=== PATIENT | female | born 1985 ===

== ENCOUNTER 2017-05-11 09:50 | Inpatient (IN) ==
--- OUTSIDE RECORDS SUMMARY | 2017-05-11 10:26 | External Medical Summary | Continuity of Care Document ---
:1985 Author Organization [facility] [employer] [facility] Address [address] [place], [place] [address] Phone Care Team Providers Name Role Phone Lawrence Colvin MD Unavailable Unavailable Allergies, Adverse Reactions, Alerts Substance Reaction Severity Status No Known Drug Allergies Unknown Active Medications Medication Instructions Dosage Effective Dates Status Comments (start - stop) Miralax 17 gram/dose take (17G) by oral 17 G - Active oral powder route every day mixed with 8 oz. water, juice, soda, coffee or tea Problems Condition Effective Dates (start - stop) Clinical Status Supervision of other high risk - pregnancies, third trimester Twin , - dichorionic/diamniotic, third trimester Maternal care for oth - abnormality and damage, fetus 2 33 weeks gestation of - Gestational htn w/o significant - proteinuria, third trimester Twin , - dichorionic/diamniotic, third trimester Previous Low Transverse - 34 weeks gestation of - Supervision of other high risk - pregnancies, third trimester Twin , - dichorionic/diamniotic, third trimester Previous Low Transverse - 34 weeks gestation of - Supervision of other high risk - pregnancies, third trimester Twin , - dichorionic/diamniotic, third trimester Previous Low Transverse - 32 weeks gestation of - Supervision of other high risk - pregnancies, third trimester Twin , - dichorionic/diamniotic, third trimester Previous Low Transverse - 31 weeks gestation of - Supervision of other high risk - pregnancies, third trimester Twin , - dichorionic/diamniotic, third trimester Previous Low Transverse - Maternal care for oth - abnormality and damage, fetus 2 Supervision of other high risk - pregnancies, third trimester Twin , - dichorionic/diamniotic, third trimester Maternal care for oth - abnormality and damage, fetus 2 35 weeks gestation of - Supervision of other high risk - pregnancies, third trimester Abnormal hematolog finding on - screening of mother Twin , - dichorionic/diamniotic, third trimester Previous Low Transverse - Supervision of other high risk - pregnancies, third trimester Twin , - dichorionic/diamniotic, third trimester Previous Low Transverse - 29 weeks gestation of - Gestational htn w/o significant - proteinuria, third trimester Twin , - dichorionic/diamniotic, third trimester Previous Low Transverse - Encounter for sterilization - Twin , - dichorionic/diamniotic, third trimester Previous Low Transverse - 32 weeks gestation of - Twin , - dichorionic/diamniotic, third trimester Previous Low Transverse - 33 weeks gestation of - Procedures Procedure Date biophys prfl w/o nstress test biophys prfl w/o nstress test Results Test Name Date and Time Measure Units Reference Range Abnormal Flag Comments Unknown Advance Directives Directive Yes / No Effective Date File Name Unknown Encounters Encounter Practice Location Reason(s) Diagnoses Date Provider Care Team Description For Visit Members Kyree Gtz Gestational htn Apr- Alexandra Referring In Womens w/o significant 6-201 Zita. Provider: Health [place], proteinuria, 7 700 Zita [address] third Medical Alexandra L, 1522, trimesterTwin Center [address] [place] [address], , , Kilo LOZANO, dichorionic/diamn 120, Center [id number], iotic, third [place], Kilo 120, [place] trimesterPrevious Ulisses LOZANO, tel:[phone] Low Transverse [id number] [place], [place] , [place]. [id number]. r for tel: tel:+316 sterilization [phone] Kyree Gtz Supervision of Alexandra Referring In Womens Ultrasound other high risk 6-201 Zita. Provider: Health [place], pregnancies, 7 700 Zita [address] third Medical Alexandra L, 1522, trimesterTwin Center [address] [place] [address], , , Kilo LOZANO, dichorionic/diamn 120, Center , iotic, third Uliss[place], Kilo 120, [place] trimesterMaternal Ulisses LOZANO, tel:+2 care for oth [phone] [place], abnormality , [place]. [id number]. and damage, fetus tel: tel:+316 235 weeks [phone] gestation of Kyree Gtz Gestational htn Apr-0 Alexandra In Womens w/o significant 9-201 Zita. Health [place], proteinuria, 7 700 PO Box third Medical 1522, [facility], , Kilo Thomas, dichorionic/diamn 120, [id number], iotic, third Gtz, [place] trimesterPrevious [place], tel:+[phone] Low Transverse [id number] C-Fjbhnwb83 weeks , [place]. gestation of tel: [phone] Kyree Gtz Supervision of Alexandra In Womens Ultrasound other high risk 9-201 Zita. Health [place], pregnancies, 7 700 PO Box third Medical 1522, [facility], , Kilo Thomas, dichorionic/diamn 120, [id number], iotic, third Gtz, [place] trimesterPrevious [place], tel:+ Low Transverse [phone] C-Ommlwti64 weeks , [place]. gestation of tel: [phone] Associates [place] Supervision of Alexandra In Womens other high risk 2-201 Zita. Health [place], pregnancies, 7 700 PO Box third Medical 1522, [facility], , Kilo Thomas, dichorionic/diamn 120, [id number], iotic, third Gtz, [place] trimesterPrevious [place], tel: Low Transverse [phone] [id number] C-SectionMaternal , [place]. care for oth tel: abnormality [phone] and damage, fetus 2 Associates [place] Supervision of Alexandra In Womens Ultrasound other high risk 2-201 Zita. Health [place], pregnancies, 7 700 PO Box third Medical 1522, [facility], , Kilo Thomas, dichorionic/diamn 120, [id number], iotic, third Gtz, [place] trimesterMaternal [place], tel: care for oth [phone] abnormality , [place]. and damage, fetus tel: 233 weeks [phone] gestation of Associates [place] Supervision of Alexandra In Womens other high risk 6-201 Zita. Health [place], pregnancies, 7 700 PO Box third Medical 1522, [facility], , Kilo Thomas, dichorionic/diamn 120, [id number], iotic, third Gtz, [place] trimesterPrevious [place], tel: Low Transverse [phone] [id number] C-Rkkbxpg02 weeks , [place]. gestation of tel: [phone] Kyree Gtz Twin , Mar- Alexandra In Womens Ultrasound dichorionic/diamn 6-201 Zita. Health [place], iotic, third 7 700 PO Box trimesterPrevious Medical 1522, Low Transverse [facility], C-Rtapqnw16 weeks Kilo Thomas, gestation of 120, [id number], Gtz, [place], tel: [phone] , [place]. tel: [phone] Kyree Gtz Supervision of Alexandra In Womens other high risk 9-201 Zita. Health [place], pregnancies, 7 700 PO Box third Medical 1522, trimesterAbnormal [facility] [place], hematolog finding Kilo Thomas, on 120, , screening of Ulisses motherKhai LOZANO, tel: , dichorionic/diamn , [place]. iotic, third tel: trimesterPrevious [id number] Low Transverse Associates [place] Twin , Mar-1 Alexandra In Womens Ultrasound dichorionic/diamn 9-201 Zita. Health [place], iotic, third 7 700 PO Box trimesterPrevious Medical 1522, Low Transverse [facility] [place], C-Hkocgaa09 weeks Kilo Thomas, gestation of 120, , [place], tel:901 , [place]. tel:[phone] Kyree Gtz Supervision of Mar- Alexandra In Womens other high risk 2-201 Zita. Health [place], pregnancies, 7 700 PO Box third Medical 1522, [facility], , Kilo Thomas, dichorionic/diamn 120, , iotic, [facility] trimesterPrevious [place], tel: Low Transverse [phone] C-Bzrrini60 weeks , [place]. gestation of tel: [phone] Associates [place] Supervision of Maximo-2 Alexandra In Womens other high risk 9-201 Zita. Health [place], pregnancies, 7 700 PO Box third Medical 1522, [facility], , Kilo Thomas, dichorionic/diamn 120, [id number], iotic, third [facility] trimesterPrevious [place], tel: Low Transverse [phone] C-Aukymlj43 weeks , [place]. gestation of tel: [phone] Family History Family Member Diagnosis Age At Onset Sister Thyroid Disorder Maternal Grandfather Hypertension Immunizations Vaccine Date Status Comments Tdap completed Source: New Immunization Record Payers Payer name Insurance type Covered democrat ID Authorization(s) [employer] - Medicaid [place] [id number] [employer] - Medicaid [place] [id number] Social History Type Description Quantity Date Captured Unknown Vital Signs Date / Height Weight BMI Pulse Blood Temperature Respiratory Body Head BMI Time: Rate Pressure Rate Surface Circumference percentile Area Unknown Chief Complaint And Reason For Visit Unknown Chief Complaint And Reason For Visit Reason For Referral Reason For Referral Unknown Plan Of Care Date Type Action Status Appointment Dipti Boggs KEPT Appointment Dipti Boggs BOOKED Appointment Dipti Boggs [facility] R C/S And PPTL BOOKED Appointment Dipti Boggs BOOKED Appointment Dipti Boggs BOOKED Appointment Dipti Boggs BOOKED Appointment Dipti Boggs BOOKED Future Order: Radiology Order Biophysical Profile without NST Ordered ([id number]) Future Order: Radiology Order Ultrasound OB Follow-up ([id number]) Ordered Future Order: Radiology Order Biophysical Profile without NST Ordered ([id number]) Future Order: Radiology Order Biophysical Profile without NST Ordered ([id number]) Future Order: Radiology Order Ultrasound OB Follow-up ([id number]) Ordered Future Order: Radiology Order Biophysical Profile without NST Ordered ([id number]) Date Type Problem Goal Intervention Status Start Date Unknown. History Of Present Illness Encounter Date Complaint History Of Present Illness This patient has no known history of present illness Functional Status Encounter Date Functional Assessment Cognitive Assessment Unknown Medications Administered Medication Instructions Dosage Effective Dates (start - stop) Status Comments Drug Treatment Unknown Instructions Date Instruction Additional Information Unknown
--- OUTSIDE RECORDS SUMMARY | 2017-05-11 10:27 | External Medical Summary | Continuity of Care Document ---
:1986 Author Organization [facility] [employer] [facility] Address [address] [place], [place] [id number] Phone Care Team Providers Name Role Phone Lawrence Colvin MD Unavailable Unavailable Allergies, Adverse Reactions, Alerts Substance Reaction Severity Status No Known Drug Allergies Unknown Active Medications Medication Instructions Dosage Effective Dates Status Comments (start - stop) iron ER 325 mg (65 take 1 tablet by Not Available - Active mg iron) oral route 2 times capsule,extended every day release Stool Softener 50 take 1 capsule by 50 MG - Active mg capsule oral route every day at bedtime as needed ORAL - Active TABLET Problems Condition Effective Dates (start - stop) Clinical Status Supervision of other high risk - pregnancies, third trimester Twin , - dichorionic/diamniotic, third trimester Previous Low Transverse - 29 weeks gestation of - Supervision of other high risk - pregnancies, third trimester Twin , - dichorionic/diamniotic, third trimester Previous Low Transverse - 31 weeks gestation of - Supervision of other high risk - pregnancies, third trimester Abnormal hematolog finding on - screening of mother Twin , - dichorionic/diamniotic, third trimester Previous Low Transverse - Previous Low Transverse - Twin , - dichorionic/diamniotic, third trimester 32 weeks gestation of - Procedures Procedure Date Initial OB 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 Results Test Name Date and Time Measure Units Reference Range Abnormal Flag Comments Panel Description: Glucose [Mass/volume] in Serum or Plasma --1 hour post 50 g glucose PO GLUCOSE, 145 mg/dL <140 H One hour value of > GESTATIONAL SCREEN 14:52:00 hd=517 mg/dL indicatesthe (50G)-140 CUTOFF need for a diagnostic 75 g dose 2-hour or100 g dose 3-hour oral glucose tolerance test;patient fasting is required.Test performed at [facility] [address] [id number]: BOWEN MENDOZA DO,MPH Panel Description: HEMOGLOBIN + HEMATOCRIT HEMOGLOBIN 14:52:00 10.7 g/dL 11.7-15.5 L HEMATOCRIT 14:52:00 32.4 % 35.0-45.0 L REPORT COMMENT:FASTING :NOTest performed at [facility] [address] [id number]: BOWEN MENDOZA DO,MPH Advance Directives Directive Yes / No Effective Date File Name Unknown Encounters Encounter Practice Location Reason(s) Diagnoses Date Provider Care Description For Visit Team Members Kyree Gtz Supervision of Mar- Alexandra In Womens other high risk 9-201 Zita. Health STACIE, pregnancies, third 7 700 [address] trimesterAbnormal Medical 1522, hematolog finding Center [facility] Kilo Thomas, screening of 120, , motherTwin [facility] [place], tel:+ dichorionic/diamni [phone] [facility], [facility] , [place]. trimesterPrevious tel: Low Transverse [phone] Kyree Gtz Previous Low Mar-1 Alexandra In Womens Ultrasound Transverse 9-201 Zita. Health STACIE, C-SectionTwin 7 700 PO Box , Medical 1522, dichorionic/diamni [facility] Kilo Thomas, [id number] weeks 120, [id number], gestation of [facility] [place], tel:[phone] , . tel: [phone] Kyree Gtz Supervision of Mar-1 Alexandra In Womens other high risk 2-201 Zita. Health STACIE, pregnancies, third 7 700 PO Box trimesterTwin Medical 1522, , [facility] [place], amyonic/dhiraj Thomas, [place], otic, third 120, [id number], trimesterPrevious Gtz, [place] Low Transverse [place], tel:+3162 C-Xxlztco51 weeks [phone] [id number] gestation of , [place]. tel: [phone] Kyree Gtz Supervision of Alexandra In Womens other high risk Zita. Health [place], pregnancies, third 7 700 PO Box trimesterTwin Medical 1522, , [facility] [place], dichricharonic/dhiraj Thomas, Kilo LOZANO, otic, third 120, [id number], trimesterPrevious Gtz, [place] Low Transverse [place], tel:+3162 C-Zgfmdsy54 weeks [phone] [id number] gestation of , [place]. tel: [phone] Family History Family Member Diagnosis Age At Onset Sister Thyroid Disorder Maternal Grandfather Hypertension Immunizations Vaccine Date Status Comments Unknown Payers Payer name Insurance type Covered democrat ID Authorization(s) [employer] - Medicaid MC [id number] Social History Type Description Quantity Date Captured Alcohol Use Details No Caffeine Use Details Unknown Tobacco Use Status Never smoked tobacco Smoking Status Former smoker Non-Smoking Tobacco Use : No Details Available : No Details Available Details Vital Signs Date / Height Weight BMI Pulse Blood Temperature Respiratory Body Head BMI Time: Rate Pressure Rate Surface Circumference percentile Area 40.8 129/76 -2017 7 mm[Hg] 1:48 kg/m PM eter (2) 182.00 40.8 -2017 lbs 0 1:49 kg/m PM eter (2) 40.8 -2017 7 1:40 kg/m PM eter (2) 182.30 40.8 147/81 -2017 lbs 7 mm[Hg] 1:25 kg/m PM eter (2) 182.30 40.8 128/79 -2017 lbs 0 mm[Hg] 1:52 kg/m PM eter (2) Chief Complaint And Reason For Visit Unknown Chief Complaint And Reason For Visit Reason For Referral Reason For Referral Unknown Plan Of Care Date Type Action Status Appointment Dipti Boggs BOOKED Appointment Dipti Boggs BOOKED Appointment Dipti Boggs BOOKED Appointment Dipti Boggs BOOKED Appointment Dipti Boggs BOOKED Appointment Dipti Boggs BOOKED Appointment Dipti Boggs BOOKED Appointment Dipti Boggs BOOKED Appointment Dipti Boggs BOOKED Appointment Dipti Boggs BOOKED Appointment Dipti Boggs BOOKED Appointment Dipti Boggs BOOKED Appointment Dipti Boggs BOOKED Appointment Dipti Boggs BOOKED Future Order: Radiology Order Ultrasound OB Follow-up ([id number]) Ordered Date Type Problem Goal Intervention Status Start [...]
--- OUTSIDE RECORDS SUMMARY | 2017-05-11 10:27 | External Medical Summary | Continuity of Care Document ---
:1986 Author Organization [facility] Address [address] [place], [place] [address] Phone Care Team Providers Name Role Phone [...] oth - abnormality and damage, fetus 2 Gestational htn w/o significant - proteinuria, third [...] fetus 2 33 weeks gestation of - Supervision of other [...] weeks gestation of - Procedures Procedure Date OB Visit No Charge Results Test Name Date and Time Measure Units Reference Range Abnormal Flag Comments Unknown Advance Directives Directive Yes / No Effective Date File Name Unknown Encounters Encounter Practice Location Reason(s) Diagnoses Date Provider Care Team Description For Visit Members Kyree Gtz Gestational htn Alexandra Referring In Womens w/o significant Zita. Provider: Health [place], proteinuria, 7 700 Zita [address] third Medical Alexandra L, 1522, trimesterTwin Center [address] [place] [address], , , Kilo LOZANO, dichorionic/diamn 120, Center [id number], iotic, third Gtz, Kilo 120, [place] trimesterPrevious [place]iss[place] LOZANO, tel:+ Low Transverse [phone] [place], C-Section[place]ounte , [place]. [id number]. r for tel: tel:+316 sterilization [phone] Kyree Gtz Supervision of Alexandra Referring In Womens Ultrasound other high risk 6-201 Zita. Provider: Health [place], pregnancies, 7 700 Zita [address] third Medical Alexandra L, 1522, [address], , , Kilo LOZANO, dichorionic/diamn 120, Center [id number], iotic, third Gtz, Kilo 120, [place] trimesterMaternal Ulisses LOZANO, tel: care for oth [phone] [place], abnormality , [place]. [id number]. and damage, fetus tel: tel:+316 235 weeks [phone] gestation of Kyree Gtz Gestational htn Apr- Alexandra In Womens w/o significant - Zita. Health [place], proteinuria, 7 700 PO Box third Medical 1522, [facility], , Kilo Thomas, dichorionic/diamn 120, [id number], iotic, third Gtz, [place] trimesterPrevious [place], tel:+ Low Transverse [phone] C-Zrduguj13 weeks , [place]. gestation of tel: [phone] Kyree Gtz Supervision of Alexandra In Womens Ultrasound other high risk - Zita. Health [place], pregnancies, 7 700 PO Box third Medical 1522, [facility], , Kilo Thomas, dichorionic/diamn 120, [id number], iotic, third Gtz, [place] trimesterPrevious [place], tel:+ Low Transverse [phone] C-Tbjwrrd00 weeks , [place]. gestation of tel: [phone] Kyree Gtz Supervision of Apr-0 Alexandra In Womens other high risk 2-201 Zita. Health [place], pregnancies, 7 700 PO Box third Medical 1522, [facility], , Kilo Thomas, dichorionic/diamn 120, [id number], iotic, third Gtz, [place] trimesterPrevious [place], tel: Low Transverse [phone] C-SectionMaternal , [place]. care for oth tel: abnormality [phone] and damage, fetus 2 Associates [place] Supervision of Apr- Alexandra In Womens Ultrasound other high risk 2-201 Zita. Health [place], pregnancies, 7 700 PO Box third Medical 1522, [facility], , Kilo Thomas, dichorionic/diamn 120, [id number], iotic, third Gtz, trimesterMaternal [place], tel: care for oth [phone] abnormality , [place]. and damage, fetus tel: 233 weeks [phone] gestation of Kyree Gtz Supervision of Alexandra In Womens other high risk 6-201 Zita. Health PA, pregnancies, 7 700 PO Box third Medical 1522, [facility], , Kilo Thomas, dichorionic/diamn 120, [id number], iotic, third Gtz, [place] trimesterPrevious [place], tel: Low Transverse [phone] [id number] C-Ynglxfa12 weeks , [place]. gestation of tel: [phone] Kyree Gtz Twin , Mar- Alexandra In Womens Ultrasound dichorionic/diamn 6-201 Zita. Health PA, iotic, third 7 700 PO Box trimesterPrevious Medical 1522, Low Transverse [facility] [place], C-Mjhxwsw10 weeks Kilo Thomas, gestation of 120, , Gtz, [place], tel: [phone] , [place]. tel:[phone] Kyree Gtz Supervision of Alexandra In Womens other high risk 9-201 Zita. Health [place], pregnancies, 7 700 PO Box third Medical 1522, trimesterAbnormal [facility], hematolog finding Kilo Thomas, on 120, , screening of Ulisses motherKhai LOZANO, tel: , dichorionic/diamn , [place]. iotic, third tel: trimesterPrevious [id number] Low Transverse [facility] [place] Twin , Mar- Alexandra In Womens Ultrasound dichorionic/diamn 9-201 Zita. Health [place], iotic, third 7 700 PO Box trimesterPrevious Medical 1522, Low Transverse [facility] [place], C-Nlxbodr09 weeks Kiol Thomas, gestation of 120, , [place], tel: [phone] 1967[address] , [place]. tel: [phone] Kyree Gtz Supervision of Mar- Alexandra In Womens other high risk 2-201 Zita. Health [place], pregnancies, 7 700 PO Box third Medical 1522, [facility], , Kilo Thomas, dichorionic/diamn 120, [id number], iotic, [facility] trimesterPrevious [place], tel: Low Transverse [phone] [id number] C-Nuacxcv26 weeks , [place]. gestation of tel: [phone] Kyree Gtz Supervision of Maximo-2 Alexandra In Womens other high risk 9-201 Zita. Health [place], pregnancies, 7 700 PO Box third Medical 1522, [facility], , Kilo Thomas, dichorionic/diamn 120, , iotic, [facility] trimesterPrevious [place], tel: Low Transverse [phone] [id number] C-Otfczsr02 weeks , [place]. gestation of tel: [phone] Family History Family Member Diagnosis Age At Onset Sister Thyroid Disorder Maternal Grandfather Hypertension Immunizations Vaccine Date Status Comments Tdap completed Source: New Immunization Record Payers Payer name Insurance type Covered libertarian ID Authorization(s) [employer] - Medicaid [place] [id number] [employer] - Medicaid MC [id number] Social History Type Description Quantity Date Captured Alcohol Use Details No Caffeine Use Details Unknown Tobacco Use Status Smoking Status Former smoker Vital Signs Date / Height Weight BMI Pulse Blood Temperature Respiratory Body Head BMI Time: Rate Pressure Rate Surface Circumference percentile Area Unknown Chief Complaint And Reason For Visit Unknown Chief Complaint And Reason For Visit Reason For Referral Reason For Referral Unknown Plan Of Care Date Type Action Status Appointment Dipti Boggs [facility] R C/S And PPTL BOOKED Appointment Dipti Boggs BOOKED Appointment Dipti Boggs BOOKED Appointment Dipti Boggs BOOKED Appointment Dipti Boggs BOOKED Future Order: Radiology Order Ultrasound OB Follow-up ([id number]) Ordered Future Order: Radiology Order Biophysical Profile without NST Ordered ([id number]) Future Order: Radiology Order Biophysical Profile without NST Ordered ([id number]) Future Order: Radiology Order Biophysical Profile without NST Ordered ([id number]) Future Order: Radiology Order Ultrasound OB Follow-up ([id number]) Ordered Future Order: Radiology Order Biophysical Profile without NST Ordered ([id number]) Date Type Problem Goal Intervention Status Start [...]
--- OUTSIDE RECORDS SUMMARY | 2017-05-11 10:27 | External Medical Summary | Continuity of Care Document ---
:1985 Author Organization [facility] Allergies Active Description Code Type Severity Reaction Onset Reported/ Identified Relationship Clinical to Patient Status Yes No Known 13141 3 N/A N/A Drug 0 Allergies Medications Medication Packaging Start Date Stop Date Route Dosage Sig Tablet 04/27/2017 04/27/2017 VITAMINS take 1 tablet by oral route every day Gram 04/27/2017 MIRALAX take (17G) by oral route every day mixed with 8 oz. water, juice, soda, coffee or tea Tablet 04/27/2017 04/27/2017 FERROUS GLUCONATE take 1 tablet by oral route every day Problems Date Dx Attending Type Code Diagnosis Diagnosed By Coded 04/06/2017 Zita Morris O30.043 Twin , L dichorionic/diamniot ic, third trimester 04/06/2017 Zita Morris O34.211 Previous Low L Transverse 04/06/2017 Zita Morris Z3A.32 32 weeks gestation L of 04/13/2017 Zita Morris O30.043 Twin , L dichorionic/diamniot ic, third trimester 04/13/2017 Zita Morris O34.211 Previous Low L Transverse 04/13/2017 Zita Morris Z3A.33 33 weeks gestation L of 04/20/2017 Zita Morris O09.893 Supervision of other L high risk pregnancies, third trimester 04/20/2017 Zita Morris O30.043 Twin , L dichorionic/diamniot ic, third trimester 04/20/2017 Zita Morris O35.8xx2 Maternal care for L oth abnormality and damage, fetus 2 04/20/2017 Zita Morris Z3A.33 33 weeks gestation L of 04/27/2017 Zita Morris O09.893 Supervision of other L high risk pregnancies, third trimester 04/27/2017 Zita Morris O30.043 Twin , L dichorionic/diamniot ic, third trimester 04/27/2017 Zita Morris O34.211 Previous Low L Transverse 04/27/2017 Zita Morris Z3A.34 34 weeks gestation L of 05/04/2017 Zita Morris O09.893 Supervision of other L high risk pregnancies, third trimester 05/04/2017 Zita Morris O30.043 Twin , L dichorionic/diamniot ic, third trimester 05/04/2017 Zita Morris O35.8xx2 Maternal care for L oth abnormality and damage, fetus 2 05/04/2017 Zita Morris Z3A.35 35 weeks gestation L of 05/04/2017 Zita Morris O13.3 Gestational htn w/o L significant proteinuria, third trimester 05/04/2017 Ztia Morris O30.043 Twin , L dichorionic/diamniot ic, third trimester 05/04/2017 Zita Morris O34.211 Previous Low L Transverse 05/04/2017 Zita Morris Z30.2 Encounter for L sterilization 05/06/2017 Zita Morris O09.893 Supervision of other L high risk pregnancies, third trimester 05/06/2017 Zita Morris O30.043 Twin , L dichorionic/diamniot ic, third trimester 05/06/2017 Zita Morris O35.8xx2 Maternal care for L oth abnormality and damage, fetus 2 05/06/2017 Zita Morris Z3A.35 35 weeks gestation L of Procedures Code Description Performed By Performed On 04/06/2017 83831 Ultrasnd preg uterus, flwup/repeat 04/13/2017 37916 biophys prfl w/o nstress test 04/20/2017 35145 biophys prfl w/o nstress test 04/27/2017 01531 Ultrasnd preg uterus, flwup/repeat 04/27/2017 97274 biophys prfl w/o nstress test 05/04/2017 50973 biophys prfl w/o nstress test OB 05/04/2017 32890 Visit No Charge Results Encounters ACCT No. Visit Discharge Status Pt. Type Provider Facility Loc./Unit Complaint Date/Time [id number] 05/04/2017 05/04/2017 CLS Outpatient Alexandra, 10:00:00 23:59:59 Zita L [id number] 05/04/2017 05/04/2017 CLS Outpatient Alexandra, 08:45:00 23:59:59 Zita L [id number] 04/27/2017 04/27/2017 CLS Outpatient Alexandra, 10:00:00 23:59:59 Zita L [id number] 04/27/2017 04/27/2017 CLS Outpatient Alexandra, 09:15:00 23:59:59 Zita L [id number] 04/20/2017 04/20/2017 CLS Outpatient Alexandra, 09:05:00 23:59:59 Zita L [id number] 04/20/2017 04/20/2017 CLS Outpatient Alexandra, 08:45:00 23:59:59 Zita L [id number] 04/13/2017 04/13/2017 CLS Outpatient Alexandra, 09:30:00 23:59:59 Zita L [id number] 04/13/2017 04/13/2017 CLS Outpatient Alexandra, 08:45:00 23:59:59 Zita L [id number] 04/06/2017 04/06/2017 CLS Outpatient Alexandra, 10:00:00 23:59:59 Zita L [id number] 04/06/2017 04/06/2017 CLS Outpatient Alexandra, 09:15:00 23:59:59 Zita L [id number] 03/31/2017 03/31/2017 CLS Outpatient Alexandra, 09:09:00 23:59:59 Zita L [id number] 03/30/2017 03/30/2017 CLS Outpatient Alexandra, 08:50:00 23:59:59 Zita L [id number] 03/18/2017 03/18/2017 CLS Outpatient Alexandra, 09:12:00 23:59:59 Zita L [id number] 03/17/2017 03/17/2017 CLS Outpatient Alexandra, 13:15:00 23:59:59 Zita L [id number] 03/16/2017 03/16/2017 [facility], 13:08:00 23:59:59 Catalina Pelaez
--- OUTSIDE RECORDS SUMMARY | 2017-05-11 10:27 | External Medical Summary | Continuity of Care Document ---
:1985 Author Organization [facility] Address [address] [place], [place] [id number] Phone Care Team Providers Name Role Phone Lawrence Colvin MD Unavailable Unavailable Allergies, Adverse Reactions, Alerts Substance Reaction Severity Status No Known Drug Allergies Unknown Active Medications Medication Instructions Dosage Effective Dates Status Comments (start - stop) ferrous gluconate take 1 tablet by Not Available - Active 324 mg (36 mg oral route every iron) tablet day Vitamin take 1 tablet by Not Available - Active tablet oral route every day Miralax 17 take (17G) by oral 17 G - Active gram/dose oral route every day powder mixed with 8 oz. water, juice, soda, coffee or tea iron ER 325 mg (65 take 1 tablet by Not Available - Active mg iron) oral route 2 times capsule,extended every day release Stool Softener 50 take 1 capsule by 50 MG - Active mg capsule oral route every day at bedtime as needed ORAL - Active TABLET Problems Condition Effective Dates (start - stop) Clinical Status Twin , - dichorionic/diamniotic, third trimester Previous Low Transverse - 33 weeks gestation of - Supervision of [...] trimester Twin , - dichorionic/diamniotic, third trimester 33 weeks gestation of - Maternal care for oth - abnormality and damage, fetus 2 Supervision of other high risk - pregnancies, third trimester Twin , - dichorionic/diamniotic, third trimester 32 weeks gestation of - Previous Low Transverse - Supervision of other high risk - pregnancies, third trimester Twin , - dichorionic/diamniotic, third trimester Previous Low Transverse - 31 weeks gestation of - Supervision of other high risk - pregnancies, third trimester Twin , - dichorionic/diamniotic, third trimester Maternal care for oth - abnormality and damage, fetus 2 Previous Low Transverse - Supervision of other high risk - pregnancies, third trimester Abnormal hematolog finding on - screening of mother Twin , - dichorionic/diamniotic, third trimester Previous Low Transverse - Twin , - dichorionic/diamniotic, third trimester Previous Low Transverse - 32 weeks gestation of - Procedures Procedure Date biophys prfl w/o nstress test biophys prfl w/o nstress test Results Test Name Date and Time Measure Units Reference Range Abnormal Flag Comments Unknown Advance Directives Directive Yes / No Effective Date File Name Unknown Encounters Encounter Practice Location Reason(s) Diagnoses Date Provider Care Description For Visit Team Members Kyree Gtz Gestational htn [facility] w/o significant 9-201 [facility], proteinuria, third 7 700 [address] trimesterTwin Medical [address], , [address], [place], otic, third 120, [id number], trimesterPrevious Gtz, [place] Low [place]verse [place], tel:[phone] C-Xislzpz64 weeks [id number] gestation of , [place]. tel:[phone] Kyree Gtz Supervision of Apr-0 [facility] Ultrasound other high risk 9-201 [facility] [place], pregnancies, third 7 700 [address] trimesterTwin Medical [address], , [address], [place], otic, third 120, [id number], trimesterPrevious Gtz, [place]verse [place], tel:[phone] C-Lrwlvau15 weeks [id number] 241791 gestation of , [place]. tel:[phone] Kyree Gtz Supervision of Apr-0 [facility] other high risk 2-201 [facility] [place], pregnancies, third 7 700 [address] trimesterTwin Medical 15[address], , [address], [place], otic, third 120, [id number], trimesterMaternal Gtz, [place] care for oth [place], tel:[phone] abnormality and [phone] [id number] damage, fetus , [place]. 2Previous Low tel:[phone] Transverse [phone] [facility] Supervision of Apr-0 [facility] Ultrasound other high risk 2-201 [facility] [place], pregnancies, third 7 700 [address] trimesterTwin Medical 1522, , [address], [place], otic, third 120, [id number], [id number] weeks Gtz, [place] gestation of [place], tel:[phone] pregnancyMaternal [phone] 302002 care for oth , [place]. abnormality and tel:+131 damage, fetus 2 [phone] Kyree Gzt Supervision of 2 [facility] other high risk 6-201 [facility] [place], pregnancies, third 7 700 [address] trimesterTwin Medical 1522, , [address], [place], otic, third 120, [id number], [id number] weeks Gtz, gestation of [place], tel:+ pregnancyPrevious [phone] [id number] Low Transverse , [place]. tel: [phone] Kyree Gtz Twin , Jose Martin-2 [facility] Ultrasound dichorionic/diamni 6-201 [facility] [place], otic, third 7 700 PO Box trimesterPrevious Medical 1522, Low Transverse [place], C-[id number] weeks [place], gestation of 120, , [place], [place], tel:[phone] , [place]. tel: [phone] Kyree Gtz Supervision of [facility] other high risk 9-201 [facility] [place], pregnancies, third 7 700 PO Box trimesterAbnormal Medical 1522, hematolog finding [place], on [place], screening of 120, , motherTwin Gtz, , [place], tel:+ dichorionic/diamni [phone] [id number] otic, third , [place]. trimesterPrevious tel: Low Transverse [phone] Kyree Gtz Twin , Mar-1 [facility] Ultrasound dichorionic/diamni 9-201 [facility] [place], otic, third 7 700 PO Box trimesterPrevious Medical 1522, Low Transverse [place], C-[id number] weeks [place], gestation of 120, , [place], [place], tel:[phone] , [place]. tel: [phone] Kyree Gtz Supervision of [facility] other high risk 2-201 [facility] [place], pregnancies, third 7 700 PO [address] trimesterTwin Medical 1522, , [facility], dichorionic/diamni [place], otic, third 120, [id number], trimesterPrevious Gtz, Low Transverse [place], tel:[phone] C-Hzlpcbg11 weeks [phone] 452896 gestation of , [place]. tel: [phone] Kyree Gtz Supervision of [facility] other high risk 9-201 Zita. [facility], pregnancies, third 7 700 [facility], , [place], dichorionic/diamni , [place], otic, third 120, [id number], trimesterPrevious Gtz, [place] Transverse [place], tel:+ C-Bmruwfx33 weeks [phone] 267215 gestation of , [place]. tel: [phone] Family History Family Member Diagnosis Age At Onset Sister Thyroid Disorder Maternal Grandfather Hypertension Immunizations Vaccine Date Status Comments Unknown Payers Payer name Insurance type Covered libertarian ID Authorization(s) [employer] [place] [employer] - Medicaid [place] [id number] Social History Type Description Quantity Date Captured Unknown Vital Signs Date / Height Weight BMI Pulse Blood Temperature Respiratory Body Head BMI Time: Rate Pressure Rate Surface Circumference percentile Area Unknown Chief Complaint And Reason For Visit Unknown Chief Complaint And Reason For Visit Reason For Referral Reason For Referral Unknown Plan Of Care Date Type Action Status Appointment Dipti Boggs TWINS KEPT Appointment Dipti Boggs BOOKED Appointment Dipti Boggs BOOKED Appointment Dipti Boggs BOOKED Appointment Dipti Boggs [facility] BOOKED Appointment Dipti Boggs BOOKED Appointment Dipti Boggs BOOKED Appointment Dipti Boggs BOOKED Appointment Dipti Boggs BOOKED Future Order: Radiology Order Biophysical Profile without NST Ordered ([id number]) Future Order: Radiology Order Ultrasound OB Follow-up ([id number]) Ordered Future Order: Radiology Order Biophysical Profile without NST Ordered ([id number]) Future Order: Radiology Order Biophysical Profile without NST Ordered ([id number]) Future Order: Radiology Order Ultrasound OB Follow-up ([id number]) Ordered Date Type Problem Goal Intervention Status [...]
--- OUTSIDE RECORDS SUMMARY | 2017-05-11 10:27 | External Medical Summary | Continuity of Care Document ---
:1985 Author Organization [facility] Address [address] [place], [place] [phone] Phone Care Team Providers Name Role Phone [...] weeks gestation of - Procedures Procedure Date Unknown Results Test Name Date and Time Measure [...] Box trimesterAbnormal Medical 1522, hematolog finding Center [place], [place], screening of 120, [id number], motherTwin Gtz, , [place], tel:[phone] dichorionic/diamni [phone] [id number] otic, third , [place]. trimesterPrevious tel: Low Transverse [phone] Kyree Gtz Previous Low Mar- A[facility] Ultrasound Transverse 9-201 [facility] [place], C-SectionTwin 7 700 PO Box , Medical 1522, dichorionic/diamni [place], otic, third [place], [id number] weeks 120, [id number], gestation of [place], [place], tel:[phone] , [place]. tel: [phone] Kyree Gtz Supervision of Mar- [facility] other high risk 2-201 [facility] [place], pregnancies, third 7 700 PO Box trimesterTwin Medical 1522, , [facility] [address], otic, third 120, [id number], trimesterPrevious Gtz, [place] Trans[place], tel:[phone] C-Jmchifv84 weeks [id number] gestation of , [place]. tel: [phone] Kyree Gtz Supervision of Feb- [facility] other high risk 9-201 [facility] [place], pregnancies, third 7 700 PO [address] trimesterTwin Medical 1522, , [facility] dichpepito/[place] [address], otic, third 120, [id number], trimesterPrevious Gtz, [place] Transverse [place], tel:[phone] C-Pkfrrul57 weeks [id number] 657535 gestation of , [place]. tel: [phone] Kyree Gtz Maximo-2 [facility] 8-201 [place]. [facility] [place], 7 700 [address] Medical [address], [address] [place], 120, [id number], [facility] [place], tel:[phone] 524128 , [place]. tel: [phone] Family History Family Member Diagnosis Age At Onset Sister Thyroid Disorder Maternal Grandfather Hypertension Immunizations Vaccine Date Status Comments Unknown Payers Payer name Insurance type Covered libertarian ID Authorization(s) [employer] [place] [employer] - Medicaid [place] [id number] Social History Type Description Quantity Date Captured Alcohol Use Details Unknown Caffeine Use Details Unknown Tobacco Use Status Unknown Smoking Status Unknown Vital Signs Date / Height Weight [...] Future Order: Radiology Order Ultrasound OB Follow-up ([id number]) Ordered Date Type Problem Goal Intervention Status [...]
--- OUTSIDE RECORDS SUMMARY | 2017-05-11 10:27 | External Medical Summary | Continuity of Care Document ---
:1985 Author Organization [facility] Address [address] [place], [place] [phone] Phone Care Team Providers Name Role Phone [...] trimester Twin , - dichorionic/diamniotic, third trimester 29 weeks gestation of - Previous Low Transverse [...] weeks gestation of - Procedures Procedure Date Ultrasnd preg uterus, flwup/repeat Ultrasnd preg uterus, flwup/repeat Results Test Name Date and Time Measure Units Reference Range Abnormal Flag Comments Unknown Advance Directives Directive Yes / No Effective Date File Name Unknown Encounters Encounter Practice Location Reason(s) Diagnoses Date Provider Care Description For Visit Team Members Kyree Gtz Supervision of [facility] other high risk 2-201 Zita. [facility], pregnancies, third 7 700 PO [facility] Medical 1522, , [facility], dichricharonic/[place] [address], otic, third 120, [id number], trimesterPrevious Gtz, [place], tel:[phone] C-SectionMaternal [phone] [id number] care for oth , [place]. abnormality and tel:+31 damage, fetus 2 [phone] Kyree Gtz Supervision of [facility] Ultrasound other high risk 2-201 Zita. [facility], pregnancies, third 7 700 [facility], , [place], dichorionic/diamKilo [address], otic, third 120, [id number], trimesterMaternal Gtz, [place] care for oth [place], tel:[phone] abnormality and [phone] 549655 damage, fetus 233 , [place]. weeks gestation of tel:[phone] Kyree Gtz Supervision of Mar-2 [facility] other high risk 6-201 [facility] [place], pregnancies, third 7 700 PO Box trimesterTwin Medical 1522, , [place], dichorionic/diamni [place], otic, third 120, [id number], trimesterPrevious Gtz, Low Transverse [place], tel:[phone] C-Cchppga29 weeks [phone] 926517 gestation of , [place]. tel: [phone] Kyree Gtz Twin , Jose Martin-2 [facility] Ultrasound dichorionic/diamni 6-201 [facility] [place], otic, third 7 700 PO Box trimesterPrevious Medical 1522, Low Transverse [place], C-Sehelve66 weeks [place], gestation of 120, [id number], [place]tz, [place], tel:+ [phone] , [place]. tel: [phone] Kyree Gtz Supervision of Mar-1 [facility] other high risk 9-201 [facility] [place], pregnancies, third 7 700 PO Box trimesterAbnormal Medical 1522, hematolog finding [facility] [place], on [place], screening of 120, [id number], motherTwin Gtz, , [place], tel:[phone] dichorionic/diamni [phone] 211868 otic, third , [place]. trimesterPrevious tel: Low Transverse [phone] Kyree Gtz Twin , Mar-1 [facility] Ultrasound dichorionic/diamni 9-201 [facility] [place], otic, third 7 700 PO Box trimesterPrevious Medical 1522, Low Transverse [place], C-Xphoipk45 weeks [place], gestation of 120, [id number], [place], [place], tel:[phone] , [place]. tel: [phone] Kyree Gtz Supervision of Mar-1 [facility] other high risk 2-201 [facility] [place], pregnancies, third 7 700 PO Box trimesterTwin Medical 1522, , [place], dichorionic/diamni Dr, [place], otic, third 120, [id number], trimesterPrevious Gtz, [place], tel: C-Ozuxnsn88 weeks [phone] 497755 gestation of , [place]. tel: [phone] [facility] Supervision of Maximo- [facility] In [facility] other high risk 9-201 Zita. [facility], pregnancies, third 7 700 PO [facility], , [address], [place], otic, third 120, [id number], [id number] weeks Gtz, [place] gestation of [place], tel: pregnancyPrevious [phone] [id number] Low Transverse , [place]. tel: [phone] Family History Family Member Diagnosis Age At Onset Sister Thyroid Disorder Maternal Grandfather Hypertension Immunizations Vaccine Date Status Comments Unknown Payers Payer name Insurance type Covered constitution party ID Authorization(s) [employer] [place] [employer] - Medicaid [place] [id number] Social History Type Description Quantity Date Captured Unknown Vital Signs Date / Height Weight BMI Pulse Blood Temperature Respiratory Body Head BMI Time: Rate Pressure Rate Surface Circumference percentile Area Unknown Chief Complaint And Reason For Visit Unknown Chief Complaint And Reason For Visit Reason For Referral Reason For Referral Unknown Plan Of Care Date Type Action Status Appointment Dipti Boggs TWINS With Drink Waiter Appointment Dipti Boggs BOOKED Appointment Dipti Boggs TWINS BOOKED Appointment Dipti Boggs BOOKED Appointment Dipti Boggs BOOKED Appointment Dipti Boggs BOOKED Appointment Dipti Boggs BOOKED Appointment Dipti Boggs BOOKED Appointment Dipti Boggs BOOKED Appointment Dipti Boggs BOOKED Future Order: Radiology Ultrasound OB Follow-up Ordered Order ([id number]) Future Order: Radiology Biophysical Profile without Ordered Order NST ([id number]) Future Order: Radiology Biophysical Profile without Ordered Order NST ([id number]) Date Type Problem Goal Intervention Status Start [...]
--- OUTSIDE RECORDS SUMMARY | 2017-05-11 10:27 | External Medical Summary | Continuity of Care Document ---
:1985 Author Organization [facility] Address [address] [place], [place] [phone] Phone Care Team Providers Name Role Phone [...] - Twin , - dichorionic/diamniotic, third trimester 33 weeks gestation of - Previous Low Transverse - Procedures Procedure Date Unknown Results Test Name Date and Time Measure Units Reference Range Abnormal Flag Comments Unknown Advance Directives Directive Yes / No Effective Date File Name Unknown Encounters Encounter Practice Location Reason(s) Diagnoses Date Provider Care Description For Visit Team Members Kyree Gtz Supervision of [facility] other high risk 2-201 Zita. [facility], pregnancies, third 7 700 [facility], , [address], [place], otic, third 120, [id number], trimesterPrevious Gtz, [place], tel:[phone] C-SectionMaternal [phone] [id number] care for oth , [place]. abnormality and tel:+[phone] damage, fetus 2 [phone] Kyree Gtz Supervision of [facility] Ultrasound other high risk 2-201 Zita. [facility], pregnancies, third 7 700 PO Box trimesterTwin Medical 1522, , [address], [place], otic, third 120, [id number], trimesterMaternal Gtz, [place] care for oth [place], tel:[phone] abnormality and [phone] 290746 damage, fetus 233 , [place]. weeks gestation of tel:[phone] Kyree Gtz Supervision of [facility] other high risk 6-201 [facility] [place], pregnancies, third 7 700 PO [address] trimesterTwin Medical 1522, , [facility], dichorionic/diamni [place], otic, third 120, [id number], trimesterPrevious Gtz, [place] Transverse [place], tel:[phone] C-Kztheke19 weeks [id number] 196790 gestation of , [place]. tel: [phone] Kyree Gtz Twin , Jose Martin-2 [facility] Ultrasound dichorionic/diamni 6-201 [facility] [place], otic, third 7 700 PO Box [id number] weeks Medical 1522, gestation of [facility], pregnancyPrevious [place], Low Transverse 120, [id number], [place], [place], tel:[phone] , [place]. tel: [phone] Kyree Gtz Supervision of Mar- [facility] other high risk 9-[address] [place], pregnancies, third 7 700 PO Box trimesterAbnormal Medical 1522, hematolog finding Center [place], on [place], screening of 120, [id number], motherTwin Gtz, , [place], tel:+ dichorionic/diamni [phone] otic, third , [place]. trimesterPrevious tel: Low Transverse [phone] Kyree Gtz Twin , Mar-1 [facility] Ultrasound dichorionic/diamni 9-201 [facility] [place], otic, third 7 700 PO Box trimesterPrevious Medical 1522, Low Transverse [facility], C-Aiqpdti80 weeks [place], gestation of 120, [id number], [place], [place], tel: [phone] , [place]. tel: [phone] Kyree Gtz Mar-1 [facility] 3-[address], 7 700 [address] Medical [address], [facility], [place], 120, [id number], [place], [place], tel:[phone] , [place]. tel: [phone] Kyree Gtz Supervision of [facility] In [facility] other high risk 2-201 [facility] [place], pregnancies, third 7 700 PO Box trimesterTwin Medical 1522, , [address], [place], otic, third 120, [id number], trimesterPrevious Gtz, [place] Low [place], tel:+3162 C-Wplinea03 weeks [phone] 072962 gestation of , [place]. tel: [phone] Kyree Gtz Supervision of [facility] In [facility] other high risk 9-201 [facility] [place], pregnancies, third 7 700 PO Box trimesterTwin Medical 1522, , [address], [place], otic, third 120, [id number], trimesterPrevious Gtz, [place], tel:+3162 C-Ikgcore87 weeks [phone] 645292 gestation of , [place]. tel: [phone] Family History Family Member Diagnosis Age At Onset Sister Thyroid Disorder Maternal Grandfather Hypertension Immunizations Vaccine Date Status Comments Unknown Payers Payer name Insurance type Covered republican ID Authorization(s) [employer] - Medicaid [place] [id number] Social History Type Description Quantity Date Captured [...] Radiology Order Biophysical Profile without NST Ordered ([id number]) Future Order: Radiology Order Ultrasound OB Follow-up ([id number]) Ordered Future Order: Radiology Order Biophysical Profile without NST Ordered ([id number]) Date Type Problem Goal Intervention Status Start [...]
--- OUTSIDE RECORDS SUMMARY | 2017-05-11 10:27 | External Medical Summary | Continuity of Care Document ---
:1985 Author Organization [facility] Address [address] [place], [place] [id number] Phone Care Team Providers Name Role Phone [...] PA, pregnancies, third 7 700 [address] [facility], , [place], dichorionic/diamni [place], otic, third 120, [id number], trimesterPrevious [facility] [place], tel:[phone] C-[id number] weeks [phone] gestation of , [place]. tel: [phone] Kyree [place] Twin , Mar- Alexandra In Womens Ultrasound dichorionic/diamni 6-201 Zita. [facility] [place], otic, third 7 700 PO Box trimesterPrevious Medical 1522, [place], C-[id number] weeks Klio Thomas, gestation of 120, [id number], [place], [place], tel:[phone] , [place]. tel: [phone] Kyree [place] Supervision of Alexandra In Womens other high risk 9-201 Zita. [facility] [place], pregnancies, third 7 700 PO Box trimesterAbnormal Medical 1522, hematolog finding [facility] [place], on [place] Thomas, screening of 120, [id number], motherTwin [place], , [place], tel:[phone] dichorionic/diamni [phone] [id number] otic, third , [place]. trimesterPrevious tel: [place] [phone] Kyree [place] Twin , Mar- Alexandra In Womens Ultrasound dichorionic/diamni 9-201 Zita. [facility] [place], otic, third 7 700 PO Box trimesterPrevious Medical 1522, [place] [facility] [place], C-[id number] weeks [place] Thomas, gestation of 120, , [place], [place], tel:[phone] , [place]. tel: [phone] Kyree [place] Supervision of Alexandra In Womens other high risk 2-201 Zita. [facility] [place], pregnancies, third 7 700 PO Box trimesterTwin Medical 1522, , [place], [place], otic, third 120, [id number], trimesterPrevious [place], [place], tel: C-[id number] weeks [phone] gestation of , [place]. tel: [phone] Kyree [place] Supervision of Alexandra In Womens other high risk 9-201 Zita. [facility] [place], pregnancies, third 7 700 PO Box trimesterTwin Medical 1522, , [address], [place], otic, third 120, [id number], trimesterPrevious [place], [place], tel: C-Ayumsfz83 weeks [phone] gestation of , [place]. tel: [phone] Family History Family Member Diagnosis Age At Onset Sister Thyroid Disorder Maternal Grandfather Hypertension Immunizations Vaccine Date Status Comments Unknown Payers Payer name Insurance type Covered republican ID Authorization(s) [employer] [place] [employer] - Medicaid [place] [id number] Social History Type Description Quantity Date Captured [...] Future Order: Radiology Order Ultrasound OB Follow-up ([id number]) Ordered Future Order: Radiology Order Biophysical Profile without NST Ordered ([id number]) Date Type Problem Goal Intervention Status Start [...]
--- OUTSIDE RECORDS SUMMARY | 2017-05-11 10:27 | External Medical Summary | Continuity of Care Document ---
:1985 Author Organization [facility] [employer] [facility] Address [address] [place], [place] [id number] Phone Care Team Providers Name Role Phone [...] oth - abnormality and damage, fetus 2 Twin , - dichorionic/diamniotic, third trimester Previous [...] In Womens other high risk 2-201 Zita. [facility], pregnancies, third 7 700 [facility], , [place] [address], otic, third 120, [id number], trimesterPrevious [place], [place], tel:[phone] C-SectionMaternal [phone] care for oth , [place]. abnormality and tel: damage, fetus 2 [phone] Kyree [place] Supervision of Alexandra In Womens Ultrasound other high risk 2-201 Zita. [facility], pregnancies, third 7 700 PO Box trimesterTwin Medical 1522, , [place] [place], otic, third 120, [id number], trimesterMaternal [place], [place] care for oth [place], tel:[phone] abnormality and [phone] damage, fetus 233 , [place]. weeks gestation of tel: [phone] Kyree [place] Supervision of Alexandra In Womens other high risk 6-201 Zita. [facility] [place], pregnancies, third 7 700 PO Box trimesterTwin Medical 1522, , [place], dichorionic/diamni [place] Thomas, otic, third 120, [id number], trimesterPrevious [place], [place], tel:[phone] C-Krgzrer68 weeks [phone] gestation of , [place]. tel: [phone] Kyree [place] Twin , Mar-2 Alexandra In Womens Ultrasound dichorionic/diamni 6-201 Zita. [facility] [place], otic, third 7 700 PO Box trimesterPrevious Medical 1522, [place], C-[id number] weeks [place] Thomas, gestation of 120, , [place], [place], tel:+ [phone] , [place]. tel: [phone] Kyree [place] Supervision of Alexandra In Womens other high risk 9-201 Zita. [facility] [place], pregnancies, third 7 700 PO Box trimesterAbnormal Medical 1522, hematolog finding [place], on [place] Thomas, screening of 120, , motherTwin [place], , [place], tel:[phone] dichorionic/diamni [phone] [id number] otic, third , [place]. trimesterPrevious tel: [place] [phone] Kyree [place] Twin , Mar- Alexandra In Womens Ultrasound dichorionic/diamni 9-201 Zita. [facility] [place], otic, third 7 700 PO Box trimesterPrevious Medical 1522, [place], C-[id number] weeks [place] Thomas, gestation of 120, [id number], [place], tel:[phone] , [place]. tel: [phone] Kyree [place] Supervision of Alexandra In Womens other high risk 2-201 Zita. [facility] [place], pregnancies, third 7 700 PO Box trimesterTwin Medical 1522, , [place], dichorionic/diamni [place] Thomas, otic, third 120, , trimesterPrevious [place], [place], tel: C-Mxfrsip22 weeks [phone] gestation of , [place]. tel: [phone] [facility] Supervision of Alexandra In Womens other high risk 9-201 [place]. [facility], pregnancies, third 7 700 PO Box trimesterTwin Medical 1522, , [place], dichorionic/diamni , [place], otic, third 120, [id number], [id number] weeks [place], gestation of [place], tel: pregnancyPrevious [phone] [place] , [place]. tel: [phone] Family History Family Member Diagnosis Age At Onset Sister Thyroid Disorder Maternal Grandfather Hypertension Immunizations Vaccine Date Status Comments Unknown Payers Payer name Insurance type Covered republican ID Authorization(s) [employer] [place] [employer] - Medicaid MC [id number] Social History Type Description Quantity Date Captured [...] Appointment Dipti Boggs KEPT Appointment Dipti Boggs TWINS BOOKED Appointment Dipti Boggs BOOKED Appointment Dipti Boggs BOOKED Appointment Dipti Boggs BOOKED Appointment Dipti Boggs BOOKED Appointment Dipti Boggs BOOKED Appointment Dipti Boggs BOOKED Appointment Dipti Boggs BOOKED Future Order: Radiology Order Biophysical Profile without NST Ordered ([id number]) Future Order: Radiology Order Ultrasound OB Follow-up ([id number]) Ordered Future Order: Radiology Order Biophysical Profile without NST Ordered ([id number]) Date Type Problem Goal Intervention Status Start [...]
--- OUTSIDE RECORDS SUMMARY | 2017-05-11 10:27 | External Medical Summary | Continuity of Care Document ---
:1985 Author Organization [facility] [employer] [facility] Address [address] [place], [place] [phone] Phone Care Team Providers Name Role Phone [...] Previous [place] - Procedures Procedure Date OB Visit No Charge Results Test Name Date and Time Measure Units Reference Range Abnormal Flag Comments Unknown Advance Directives Directive Yes / No Effective Date File Name Unknown Encounters Encounter Practice Location Reason(s) Diagnoses Date Provider Care Description For Visit Team Members Kyree [place] Gestational htn Alexandra In Womens w/o significant 9-201 Zita. [facility], proteinuria, third 7 700 PO Box [facility] Medical 1522, , [place], [place], otic, third 120, [id number], trimesterPrevious [place], [place], tel:[phone] C-Iasfici77 weeks [phone] gestation of , [place]. tel:[phone] Kyree [place] Supervision of Apr-0 Alexandra In Womens Ultrasound other high risk 9-201 Zita. Health [place], pregnancies, third 7 700 PO Box trimesterTwin Medical 1522, , [address] [address], [place], otic, third 120, [id number], trimesterPrevious [place], [place], tel:[phone] C-Grajoib07 weeks [phone] [id number] gestation of , [place]. tel:[phone] Kyree [place] Supervision of Apr-0 Alexandra In Womens other high risk 2-201 Zita. Health [place], pregnancies, third 7 700 PO Box trimesterTwin Medical 1522, , [place] [address], [place], otic, third 120, [id number], trimesterMaternal [place], [place] care for oth [place], tel:[phone] abnormality and [phone] damage, fetus , [place]. 2Previous Low tel:[phone] Transverse [phone] [facility] Supervision of Apr-0 Alexandra In Womens Ultrasound other high risk 2-201 Zita. Health [place], pregnancies, third 7 700 PO Box trimesterTwin Medical 1522, , [address], [place], otic, third 120, [id number], [id number] weeks [place], [place] gestation of [place], tel:[phone] pregnancyMaternal [phone] care for oth , [place]. abnormality and tel:[phone] damage, fetus 2 [phone] Kyree [place] Supervision of Mar-2 Alexandra In Womens other high risk 6-201 Zita. Health [place], pregnancies, third 7 700 PO Box trimesterTwin Medical 1522, , [place] [address], [place], otic, third 120, [id number], trimesterPrevious [place], [place], tel:[phone] C-Xrxdsbe78 weeks [phone] gestation of , [place]. tel: [phone] Kyree [place] Twin , Jose Martin-2 Alexandra In Womens Ultrasound dichorionic/diamni 6-201 Zita. [facility] [place], otic, third 7 700 PO Box [id number] weeks Medical 1522, gestation of [facility], pregnancyPrevious [place] Thomas, [place] 120, [id number], [facility] [place], tel:[phone] , [place]. tel: [phone] Kyree [place] Supervision of Jose Martin-1 Alexandra In Womens other high risk 9-201 Zita. [facility] [place], pregnancies, third 7 700 PO Box trimesterAbnormal Medical 1522, hematolog finding [place], on [place] Thomas, screening of 120, [id number], motherTwin [place], , [place], tel:+ dichorionic/diamni [phone] otic, third , [place]. trimesterPrevious tel: [place] [phone] Kyree [place] Twin , Jose Martin-1 Alexandra In Womens Ultrasound dichorionic/diamni 9-201 Zita. [facility] [place], otic, third 7 700 PO Box trimesterPrevious Medical 1522, [place], C-[id number] weeks [place] Thomas, gestation of 120, [id number], [place], [place], tel:[phone] , [place]. tel: [phone] Kyree [place] Supervision of Jose Martin-1 Alexandra In Womens other high risk 2-201 Zita. [facility] [place], pregnancies, third 7 700 PO Box trimesterTwin Medical 1522, , [facility], dichorionic/diamni [place] Thomas, otic, third 120, [id number], trimesterPrevious [place], [place], tel:+[phone] C-Ghohieq26 weeks [id number] gestation of , [place]. tel: [phone] Kyree [place] Supervision of Maximo-2 Alexandra In Womens other high risk 9-201 Zita. [facility] [place], pregnancies, third 7 700 [facility], , [place], dichorionic/diamni , [place], otic, third 120, [id number], trimesterPrevious [place], [place], tel:+ C-Jumruxb72 weeks [phone] gestation of , [place]. tel: [phone] Family History Family Member Diagnosis Age At Onset Sister Thyroid Disorder Maternal Grandfather Hypertension Immunizations Vaccine Date Status Comments Unknown Payers Payer name Insurance type Covered republican ID Authorization(s) [employer] [place] [employer] - Medicaid [place] [id number] Social History Type Description Quantity Date Captured Alcohol Use Details No Caffeine Use Details Unknown Tobacco Use Status Smoking Status Former smoker Vital Signs Date / Height Weight BMI Pulse Blood Temperature Respiratory Body Head BMI Time: Rate Pressure Rate Surface Circumference percentile Area 40.2 -2016 8 9:07 kg/m AM eter (2) 182.40 40.8 146/97 2017 lbs 9 mm[Hg] 9:09 kg/m AM eter (2) Chief Complaint And Reason For [...] Future Order: Radiology Order Ultrasound OB Follow-up ([id number]) Ordered Future Order: Radiology Order Biophysical Profile without NST Ordered ([id number]) Future Order: Radiology Order Biophysical Profile without NST Ordered ([id number]) Future Order: Radiology Order Ultrasound OB Follow-up ([id number]) Ordered Future Order: Radiology Order Biophysical Profile without NST Ordered ([id number]) Date Type Problem Goal Intervention Status Start [...]
--- OUTSIDE RECORDS SUMMARY | 2017-05-11 10:27 | External Medical Summary | Continuity of Care Document ---
:1985 Author Organization [facility] Address [address] [place], [place] [phone] Phone Care Team Providers Name Role Phone [...] Reference Range Abnormal Flag Comments Panel Description: GLUCOSE TOLERANCE TEST, GESTATIONAL,4SPEC(100G) GLUCOSE, FASTING 08:15:00 77 mg/dL 65-94 N GLUCOSE, 1 HOUR 08:15:00 154 mg/dL <180 N GLUCOSE, 2 HOUR 08:15:00 127 mg/dL <155 N GLUCOSE, 3 HOUR 08:15:00 45 mg/dL <140 L 08:15:00 See Below Neves/Coustan Criteria: Two or more values greater than the above reference intervals are suggestive of gestational diabetes. REPORT COMMENT:FASTING:YESTe st performed at [facility] [id number] [place] [address]Maxcgciz: BOWEN MENDOZA DO,MPH Advance Directives Directive Yes / No Effective Date File Name Unknown Encounters Encounter Practice Location Reason(s) Diagnoses Date Provider Care Description For Visit Team Members Kyree [place] Supervision of Mar- Alexandra In Womens other high risk 9-201 [place]. [facility] [place], pregnancies, third 7 700 PO Box trimesterAbnormal Medical 1522, hematolog finding Center [facility] [place] Thomas, screening of 120, , motherTwin [place], , [place], tel:+ dichorionic/diamni [phone] otic, third , [place]. trimesterPrevious tel: [place] [phone] Kyree [place] Previous Low Mar- Alexandra In Womens Ultrasound Transverse 9- [place]. [facility] [place], C-SectionTwin 7 700 PO Box , Medical 1522, dichorionic/diamni [employer], ot, [facility] [place] Thomas, [id number] weeks 120, , gestation of [place], [place], tel:+ [phone] , [place]. tel: [phone] Kyree [place] Supervision of Mar- Alexandra In Womens other high risk 2-201 Zita. [facility] [place], pregnancies, third 7 700 PO Box trimesterTwin Medical 1522, , [facility] [employer], dichorionic/diamni [place] Thomas, otic, third 120, [id number], trimesterPrevious [facility] [place], tel: C-[id number] weeks [phone] gestation of , [place]. tel: [phone] Kyree [place] Maximo-3 Alexandra In Womens 0-201 Zita. [facility] [place], 7 700 PO Box Medical 1522, [place], , [place] LO[place]O, 120, [id number], [place], [place], tel:[phone] , [place]. tel: [phone] Kyree [place] Supervision of Maximo-2 Alexandra In Womens other high risk 9-201 Zita. [facility] [place], pregnancies, third 7 700 PO Box trimesterTwin Medical 1522, , [place], dichorionic/diamni , [place] LO[place], otic, third 120, [id number], trimesterPrevious [place], [place], tel: C-[id number] weeks [phone] gestation of , [place]. tel: [phone] Family History Family Member Diagnosis Age At Onset Sister Thyroid Disorder Maternal Grandfather Hypertension Immunizations Vaccine Date Status Comments Unknown Payers Payer name Insurance type Covered democrat ID Authorization(s) [employer] [place] [employer] - Medicaid MC [id number] Social History Type Description Quantity Date Captured Unknown Vital Signs Date / Height Weight BMI Pulse Blood Temperature Respiratory Body Head BMI Time: Rate Pressure Rate Surface Circumference percentile Area Unknown Chief Complaint And Reason For Visit Unknown Chief Complaint And Reason For Visit Reason For Referral Reason For Referral Unknown Plan Of Care Date Type Action Status Dipti Young BOOKED Appointment Dipti Boggs BOOKED Appointment Dipti Boggs BOOKED Appointment Dipti Boggs BOOKED Appointment Dipti Boggs BOOKED Appointment Dipti Boggs BOOKED Appointment Dipti Boggs TWINS BOOKED Dipti Young BOOKED Appointment Dipti Boggs BOOKED Appointment Dipti Boggs BOOKED Appointment Dipti Boggs BOOKED Appointment Dipti Boggs BOOKED Appointment Dipti Boggs BOOKED Appointment Dipti Boggs BOOKED Future Order: Radiology Order Ultrasound OB Follow-up ([id number]) Ordered Date Type Problem Goal Intervention Status [...]
[2017-05-11] MEDS ORDERED: LR 1,000 ML IV SCH ×2 (10:30→13:02)
--- NOTE | 2017-05-11 11:17 | Ultrasound Report ---
Indication: swelling in L leg PROCEDURE: US venous doppler LE LT: Encounter: Initial Comparison: None Technique: Color Doppler duplex and grayscale sonographic imaging of the left lower extremity was performed. Findings: There is no evidence for acute deep venous thrombosis in the left thigh. Specifically, serial graded compression was performed from the inguinal ligament to the popliteal bifurcation, on the left thigh, demonstrating appropriate compressibility of the deep venous system. In addition, color and pulsed Doppler demonstrate appropriate spontaneous flow, variation with respiration, and augmentation with calf compression. At the ankle, normal flow is identified in the posterior tibial veins; these vessels are also normal in caliber. Impression: No evidence of acute DVT in the left lower limb. .
[2017-05-11 11:22] VITALS: BMI 29.6
[2017-05-11] MEDS ORDERED: CITRIC ACID/SODIUM CITRATE 30ml PO ONE (13:02)
[2017-05-11] MEDS ORDERED: FAMOTIDINE PB 20 MG/50 ML BAG IV ONE (13:02)
[2017-05-11] MEDS ORDERED: CEFAZOLIN PREMIX (MC ONLY) 2 GM/50 ML BAG IV ONE (13:02)
[2017-05-11] MEDS ORDERED: PHENYLEPHRINE INJ 10 MG/ML VIAL IV ONE (14:55)
[2017-05-11] MEDS ORDERED: SALINE FLUSH 10ml SYRINGE ONE (14:55)
[2017-05-11] MEDS ORDERED: EPHEDRINE 50mg/ml INJECTION ONE (14:55)
--- NOTE | 2017-05-11 15:29 | Anesthesia Preoperative Report ---
Anesthesia Preoperative Record - Date and Time Date: 05/11/17 Preoperative Diagnosis: Proposed Procedure: repeat c section NPO Since Date: 05/11/17 NPO Since Time: 12:00 Allergies/Adverse Reactions: Allergies Allergy/AdvReac Type Severity Reaction Status Date / Time No Known Allergies Allergy Verified 05/11/17 10:55 - Vital Signs Vital Signs: Temperature 98.0 F 05/11/17 11:00 Pulse Rate 102 H 05/11/17 11:00 Respiratory Rate 18 05/11/17 11:00 Blood Pressure 170/101 H 05/11/17 11:00 Pulse Oximetry 98 05/11/17 11:00 Oxygen Delivery Method Room Air Height and Weight: Height 1.73 m Weight 88.451 kg Body Mass Index 29.6 - Medications Inpatient Medications: Current Medications Lactated Ringer's (Lactated Ringers) 1,000 mls @ 100 mls/hr IV .Q10H SETH Last Admin: 05/11/17 10:50 Dose: 100 mls/hr Lactated Ringer's (Lactated Ringers) 1,000 mls @ 100 mls/hr IV .Q10H SETH Tranexamic Acid 1,000 mg/ (Sodium Chloride) 110 mls @ 660 mls/hr IV INTRAOP ONE Stop: 05/11/17 18:09 Isopropyl Alcohol (Nozin Nasal Swab) 1 each SONNY O ONE Stop: 05/11/17 20:01 Isopropyl Alcohol (Nozin Nasal Swab) 3 each SONNY PREOP ONE Stop: 05/11/17 18:01 Isopropyl Alcohol (Nozin Nasal Swab) 1 each SONNY 0600,1400,2200 SETH - Medical History Cardiovascular: Reports: Hypertension - Surgical History HEENT Surgeries: Reports: Other (wisdom teeth) Reproductive Surgery/Treatment: Reports: Section Anesthesia Reactions: None Hx Family Anesthesia Reaction: No History of Motion Sickness: No - Social History Smoking Status: Former smoker Substance Use Type: does not use Alcohol Intake Frequency: does not drink - Pertinent Findings Laboratory: CBC and BMP 05/11/17 10:50 05/11/17 10:50 BMP 05/11/17 10:50 Sodium 139 Potassium 3.9 Chloride 111 H Carbon Dioxide 20 L BUN 7.0 Creatinine 0.5 L Glucose 65 Calcium 9.0 Liver Function 05/11/17 Range/Units 10:50 Total Bilirubin 0.40 (0.20-1.30) MG/DL AST 30 (14-36) U/L ALT 34 (9-52) U/L Alkaline Phosphatase 229 H (38-126) U/L Albumin 3.4 L (3.5-5.0) G/DL Urine 05/11/17 Range/Units 10:43 Urine Color Yellow (YELLOW) Urine Clarity Sl cloudy Urine pH 5.5 (5.0-8.0) Ur Specific [place] 1.015 (1.015-1.025) Urine Protein Negative (NEGATIVE) Urine Glucose (UA) Negative (NEGATIVE) EKG Rhythm: Normal Sinus Rhythm - Physical Exam Respiratory Exam: Present: lungs clear Cardiovascular Exam: Present: regular rate and rhythm, no murmur - Airway Assessment Mallampati Score: II TMD: 3 Fingerbreadths Neck Extension: good Teeth: chipped teeth/crowns Overall Assessment: may be difficult mask vent - ASA ASA Score: 2 - Plan Regional/Trunk Block: Spinal - Discussion Discussion: Discussed risks/options/alternatives of anesthesia and questions answered. Patient consents. Nursing pain assessment noted. Present for Discussion: family member Attestation Statement: Prior to the delivery of any anesthetic medication, I examined the patient, developed the plan, obtained the patient's consent and discussed the risk and benefits of the procedure with the patient/guardian.
[2017-05-11] MEDS ORDERED: TRANEXAMIC ACID 1,000 MG in NS 100 ML IV ONE (18:00)
[2017-05-11] MEDS ORDERED: NOZIN NASAL SWAB NAS ONE ×2 (18:00→20:00)
[2017-05-11] MEDS ORDERED: FentaNYL 100 MCG/2 ML INJECTION ONE (18:51)
[2017-05-11] MEDS ORDERED: MORPHINE SULFATE PF 5mg/10ml INJ (Duramorph) ONE (18:52)
[2017-05-11] MEDS: OXYTOCIN DRIP 30 UNIT/500 ML ML IV SCH ×2 (20:10→20:51)
[2017-05-11] MEDS ORDERED: CALCIUM CARBONATE Chewable 500mg TABLET PO PRN (21:41)
[2017-05-11] MEDS ORDERED: DiphenhydrAMINE 25 MG CAPSULE PO PRN (21:41)
[2017-05-11] MEDS ORDERED: ACETAMINOPHEN 500 MG TABLET PO PRN (21:41)
[2017-05-11] MEDS ORDERED: HYDROCORTISONE 2.5% CREAM 30gm RECTALLY PRN (21:41)
[2017-05-11] MEDS ORDERED: SALINE FLUSH 10ml SYRINGE IVF PRN (21:41)
[2017-05-11] MEDS ORDERED: SIMETHICONE 80 MG CHEWABLE TABLET PO PRN (21:41)
[2017-05-11] MEDS ORDERED: OXYTOCIN DRIP 30 UNIT/500 ML ML IV SCH (21:41)
[2017-05-11] MEDS ORDERED: ONDANSETRON 4 MG/2 ML INJECTION IVP PRN (21:50)
[2017-05-11] MEDS ORDERED: NALBUPHINE 10 MG/ML INJECTION IVP PRN (21:50)
[2017-05-11] MEDS ORDERED: NALOXONE 2 MG/2 ML INJECTION PFS IVP PRN (21:50)
[2017-05-11] MEDS: HYDROCODONE/APAP 5mg/325mg TABLET PO PRN ×2 (22:31→23:09)
[2017-05-11] MEDS: IBUPROFEN 800 MG TABLET PO PRN (22:31)
[2017-05-12] MEDS ORDERED: MORPHINE PCA 30 MG/30 ML SYRINGE IV PRN (00:20)
[2017-05-12] MEDS: D5LR 1,000 ML IV SCH ×3 (02:07→19:58)
[2017-05-12] MEDS ORDERED: NOZIN NASAL SWAB NAS SCH (06:00)
--- NOTE | 2017-05-12 08:15 | OB/GYN Progress Note ---
OB-Progress Note Free Text - Date Date: 05/12/17 - Progress Note Progress Note: afebrile BP elevated pt not resting much both babies in SCN will dc balance truer and begin oral meds will start BP med q&a-krb
--- NOTE | 2017-05-12 08:30 | Operative Note ---
DATE OF PROCEDURE 05/11/2017 PREOPERATIVE DIAGNOSES 1. Preeclampsia with mild features, worsening. 2. Twin (di/di). 3. Undesired fertility. 4. Previous x 2. POSTOPERATIVE DIAGNOSIS Same, delivered. PROCEDURE Repeat low transverse section, bilateral tubal ligation (modified [place]). SURGEON Zita Morris MD MANAGER SECURITY AND SAFETY Neal Vu MD ANESTHESIA Combo spinal-epidural - Luke Vang, INSTRUMENT SPECIALIST EBL 1000 ml DESCRIPTION OF PROCEDURE Ms. Boggs was brought to the OR and given regional analgesia to good effect. She was then placed on the OR table in a comfortable supine position with left lateral displacement. A Recio catheter was placed to dependent drain. The abdomen was prepped and draped in the usual sterile fashion. Pfannenstiel skin incision was made with a sharp knife. This was carried down to fascia. Fascia was incised transversely. This was tented up. Fascia was then bluntly and sharply dissected free of rectus muscles. Rectus muscles were bluntly divided. Peritoneum was tented up and sharply entered. This was then extended vertically. The bladder blade was inserted. The bladder was noted be well below the area of operation. A low transverse uterine incision was made with a sharp knife. This was extended bluntly. Baby A on maternal left was delivered in a vertex presentation. Initially he was compound but we are able to reduce his hand that was up by his face and then he delivered. We reduced a loose nuchal cord x 1 prior to delivery of the head. Baby was bulb suctioned on the abdomen. Cord was doubly clamped and cut. Baby was then given to Dr. Bustos and her team for care. This was a liveborn male with Apgars of 8/9/9, weighing 6 pounds 4 ounces. After a moment, Baby B on the maternal right had descended into pelvis. We ruptured membranes. It was clear fluid. Baby was delivered without difficulty in the maria t breech presentation. Baby was bulb suctioned. Cord was doubly clamped and cut and the baby was also given to Dr. Bustos for care. This is a liveborn female. She had Apgars of 6/7/9 and weighed 6 pounds 3 ounces. We then removed the placenta intact. There was a small remnant that stayed in the uterus, but it was easily swept clear. We carefully checked the uterine cavity to make sure it was clear of any further membranes of placenta. We then exteriorized the uterus. The myometrial incision was then reapproximated with a running locking 0 Monocryl. We then turned our attention to the tubal ligation. The right fallopian tube was grasped about two-thirds of the way down with a [place] clamp. Bilaterally there very large veins draining the mesosalpinx. The right fallopian tube was tied around the base of the mesosalpinx near the fimbria with a simple ligature of 2-0 chromic. The mesosalpinx was pierced with a clamp and a simple ligature of 2-0 chromic tied around the proximal and then around the distal end. The isolated portion of tube was then excised and sent to pathology for evaluation. We repeated the procedure on the left fallopian tube including fimbria. However, we only put a simple ligature of 2-0 chromic around the distal end rather than an additional silk. Hemostasis was reinspected on both sides. It remained under excellent control. We then reinspected the myometrial incision. There was a small area of bleeding along the left. This was secured with a [id number] suture of O Monocryl. Bovie cautery was used to control other small areas of bleeding. After being sure that hemostasis was under control, we returned the uterus, tubes and ovaries to the abdominal cavity. We reinspected our incisions and removed gross blood from the abdomen. We then reapproximated peritoneum with a running nonlocking 2-0 Vicryl. Fascia was reapproximated with a running nonlocking 0 Vicryl. Skin edges were reapproximated with a subcuticular style 3 -0 undyed Vicryl. The wounds were dressed with sterile dressings. Counts were correct postoperatively x 2. The urine remained clear and free flowing throughout the procedure. Ms. Boggs was then transferred to recovery in stable condition. EBONI
--- NOTE | 2017-05-12 09:19 | Anesthesia Postoperative Note ---
- Date and Time Date: 05/12/17 Time: 09:18 - Status Patient Participated in Evaluation: Patient Participated in Person Vital Signs: Temperature 97.3 F 05/12/17 08:20 Pulse Rate 105 H 05/12/17 08:20 Respiratory Rate 18 05/12/17 08:20 Blood Pressure 152/102 H 05/12/17 08:20 Pulse Oximetry 100 05/12/17 08:20 Oxygen Delivery Method Room Air Respiratory Function: Airway Patent Cardiovascular Function: Regular Pulse EKG Rhythm: Normal Sinus Rhythm Mental Status: Alert and Oriented Pain Intensity: 3 Hydration: Taking PO Fluids Complications During Recover: None Apparent - Follow-Up Instructions Instructions: Per Surgeon
[2017-05-12] MEDS: Oxycodone/Acetaminophen 5/325 1 TAB PO PRN ×3 (09:32→20:48)
[2017-05-12] MEDS: IBUPROFEN 800 MG TABLET PO PRN ×2 (09:33→23:03)
[2017-05-12] MEDS: SIMETHICONE 80 MG CHEWABLE TABLET PO SCH ×4 (09:33→23:04)
[2017-05-12] MEDS: DOCUSATE CALCIUM 240 MG CAPSULE PO SCH (09:33)
[2017-05-12] MEDS: LABETALOL 100 MG TABLET PO SCH ×4 (09:57→23:05)
--- NOTE | 2017-05-12 17:44 | OB/GYN Progress Note ---
OB-Progress Note Free Text - Date Date: 05/12/17 - Progress Note Progress Note: Called by nursing for increasing BP had a 164/95. Pt was previously DX with preeclampsia without severe features. Was on Labetolol 100mg BID. Will increase to 100 mg TID. PIH labs ordered to ensure stable. Pt seen Denies REIS, Vision changes, RUQ pain. Laboratory Results - last 24 hr 05/12/17 05/12/17 06:25 17:27 WBC 11.8 H 13.3 H RBC 3.78 L 3.58 L Hgb 11.7 L 11.1 L Hct 34.9 L 33.1 L MCV 92.3 92.5 MCH 31.0 31.0 MCHC 33.5 33.5 RDW Std Deviation 42.3 42.0 Plt Count 182 193 MPV 10.1 9.8 Vital Signs Temp Pulse Resp BP Pulse Ox 05/12/17 16:39 98.1 F 106 H 16 164/95 H 99 05/12/17 13:15 98.3 F 92 16 128/81 98 05/12/17 10:33 136/79 05/12/17 08:20 97.3 F 105 H 18 152/102 H 100
[2017-05-13] MEDS: Oxycodone/Acetaminophen 5/325 1 TAB PO PRN ×5 (01:16→21:22)
[2017-05-13] MEDS: D5LR 1,000 ML IV SCH (06:18)
--- NOTE | 2017-05-13 07:27 | OB/GYN Progress Note ---
OB-PP Progress Note - General PPD2 General: Pt reports good pain control. Baby A still in SCN, probably out today. - Subjective Date: 05/13/17 Lochia: Minimal Pain: contolled Voiding: voiding Nausea or Vomiting Present: No - Objective Vital Signs: Last Vital Signs Temp 97.8 F 05/13/17 06:00 Pulse 73 05/13/17 06:00 Resp 14 05/13/17 06:00 BP 147/86 H 05/13/17 06:00 Pulse Ox 99 05/13/17 06:00 Urine Output: good General: alert and oriented Respiratory: non-labored Abdomen: fundus firm, non-tender Incision: normal, dry Extremities: non-tender Edema: none Laboratory: Laboratory Results - last 24 hr 05/12/17 05/12/17 17:27 17:27 WBC 13.3 H RBC 3.58 L Hgb 11.1 L Hct 33.1 L MCV 92.5 MCH 31.0 MCHC 33.5 RDW Std Deviation 42.0 Plt Count 193 MPV 9.8 Neutrophils % (Manual) 71.0 H Band Neutrophils % 8.0 H Lymphocytes % (Manual) 11.0 L Monocytes % (Manual) 8.0 Metamyelocytes % 2.0 H Neutrophils # (Manual) 9.4 H Band Neutrophils # 1.1 Lymphocytes # (Manual) 1.5 Monocytes # (Manual) 1.1 H Metamyelocytes # 0.3 RBC Morph Comment Normal Turbidity < 20 Sodium 138 Potassium 3.9 Chloride 108 H Carbon Dioxide 24 Anion Gap 6 BUN 6.0 L Creatinine 0.5 L GFR Calculation 145 BUN/Creatinine Ratio 12 Glucose 82 Calculated Osmolality 263 Calcium 8.8 Total Bilirubin 0.40 Icterus Index < 2 AST 29 ALT 31 Alkaline Phosphatase 160 H D Total Protein 5.5 L Albumin 2.9 L Globulin 2.6 Albumin/Globulin Ratio 1.1 Specimen Hemolysis < 15 - Assessment Assessment: SP, Repeat C/S, Tubal Ligation - Plan Plan: routine care Expected date of discharge: 05/14/17 Will likely dismiss to Boarding status tomorrow. Discussed with pt. Q&A
--- NOTE | 2017-05-13 07:32 | Discharge Instructions ---
Discharge Plan - Med Rec/Dispo Prescriptions: New Ibuprofen [Motrin] 800 mg PO Q8H PRN #40 tablet PRN Reason: Pain Docusate Calcium [Surfak] 240 mg PO DAILY #30 capsule Oxycodone/APAP 5/325 [Percocet 5/325] 1 - 2 tab PO Q4H PRN #30 tablet PRN Reason: Pain No Action Vitamin Tablet
[2017-05-13] MEDS: DOCUSATE CALCIUM 240 MG CAPSULE PO SCH (08:34)
[2017-05-13] MEDS: SIMETHICONE 80 MG CHEWABLE TABLET PO SCH ×4 (08:34→21:24)
[2017-05-13] MEDS: LABETALOL 100 MG TABLET PO SCH ×3 (08:34→21:25)
[2017-05-13] MEDS: IBUPROFEN 800 MG TABLET PO PRN ×2 (08:34→16:36)
[2017-05-14] MEDS: IBUPROFEN 800 MG TABLET PO PRN ×2 (00:38→08:54)
[2017-05-14] MEDS: Oxycodone/Acetaminophen 5/325 1 TAB PO PRN ×4 (00:39→13:18)
[2017-05-14] MEDS: SIMETHICONE 80 MG CHEWABLE TABLET PO SCH ×4 (01:17→21:47)
[2017-05-14] MEDS: LABETALOL 100 MG TABLET PO SCH ×3 (08:53→21:46)
[2017-05-14] MEDS: DOCUSATE CALCIUM 240 MG CAPSULE PO SCH (08:53)
--- NOTE | 2017-05-14 12:40 | OB/GYN Progress Note ---
OB-PP Progress Note - General PPD3 Maternal Group B Strep: Negative Maternal blood type: O+ Maternal Rubella Status: Immune - Subjective Date: 05/14/17 Lochia: Minimal Pain: contolled Voiding: voiding Nausea or Vomiting Present: No - Objective Vital Signs: Last Vital Signs Temp 98.1 F 05/14/17 04:50 Pulse 91 05/14/17 04:50 Resp 18 05/14/17 04:50 BP 135/91 H 05/14/17 04:50 Pulse Ox 98 05/14/17 04:50 General: alert and oriented Abdomen: fundus firm, non-tender, soft Incision: normal, dry, intact Extremities: non-tender Edema Degree: 2+ Laboratory: Laboratory Results - last 24 hr 05/11/17 10:50 Crossmatch (AHG) See Detail - Assessment Assessment: Repeat C/S, Tubal Ligation, Preeclampsia - Plan Plan: routine care, discharge home, continue PNV Continue the labetolol. BP and incision check next week.
--- NOTE | 2017-05-14 12:43 | Discharge Instructions ---
Discharge Plan - Med Rec/Dispo Prescriptions: New Ibuprofen [Motrin] 800 mg PO Q8H PRN #40 tablet PRN Reason: Pain Docusate Calcium [Surfak] 240 mg PO DAILY #30 capsule Oxycodone/APAP 5/325 [Percocet 5/325] 1 - 2 tab PO Q4H PRN #30 tablet PRN Reason: Pain Labetalol [Normodyne] 100 mg PO TID #90 tab Continue Vitamin Tablet Discharge Instructions/Outpatient Orders: Final Provider Discharge Instructions Time Frame: 05/14/17, Location: Determined By Patient - Disposition 01 Discharged Home, Self-Care
[2017-05-14 14:41] VITALS: TEMP 98
[2017-05-14 22:40] VITALS: BP 157/95; PULSE 100; RESP 16; O2SAT 97
== END 2017-05-14 22:45 | disposition home or self-care (01) | DRG 765 ==
LOC: OBOBS 09:50 → MC 10:25
PROVIDERS: ADMIT Obstetrics & Gynecology; ATTEND Obstetrics & Gynecology